=== PATIENT | male | born 1990 | race Caucasian/White ===

== ENCOUNTER 2021-11-28 14:30 | Outpatient (REF) | payer OTHER, SELFPAY ==
[2021-11-28 14:55] LABS: MANUAL DIFF FLAG NO
[2021-11-28 15:42] LABS: Basophils Absolute Auto 0.1 X10*3/uL (0.0-0.2); Basophils Percent Auto 0.6 % (0-2); Eosinophils Absolute Auto 0.1 X10*3/uL (0.0-0.4); Eosinophils Percent Auto 1.7 % (0-4); Hematocrit 48.1 % (42.0-52.0); Hemoglobin 16.2 g/dl (14.0-18.0); Imm Gran Abs Auto 0.03 X10*3/uL (0.00-0.03); Imm Gran Pct Auto 0.4 % (0.0-0.4); Lymphocytes Absolute Auto 2.1 X10*3/uL (1.2-4.9); Lymphocytes Percent Auto 25.4 % (20-40); Mean Corpuscular HGB Conc 33.7 g/dl (31.0-36.0); Mean Corpuscular Hemoglobin 29.8 pg (27.0-33.0); Mean Corpuscular Volume 88.4 fL (80.0-98.0); Mean Platelet Volume 10.7 fL (9.4-12.4); Monocytes Absolute Auto 0.5 X10*3/uL (0.1-1.2); Monocytes Percent Auto 6.4 % (2-11); Neutrophils Absolute Auto 5.5 x10*3/uL (2.0-8.3); Neutrophils Percent Auto 65.5 % (45-73); Platelet Count 279 X10*3/uL (160-400); Red Blood Count 5.44 X10*6/uL (4.60-5.80); Red Cell Distribution Width 11.9 % (11.0-16.0); White Blood Count 8.4 X10*3/uL (4.8-10.8)
[2021-11-28 15:59] LABS: C Reactive Protein 0.23 mg/dL (< or = 0.50); Rheumatoid Factor < 15.0 IU/mL (<15.0)
[2021-11-28 16:32] LABS: Erythrocyte Sedimentation Rate 2 MM/HR (0-15)
[2021-12-01 15:33] LABS: Anti Nuclear Antibody Pattern Nuclear, Homogeneous; Anti Nuclear Antibody Screen POSITIVE (NEGATIVE)
[2021-12-02 08:31] LABS: Treponema pallidum Ab FTA ABS Nonreactive (Nonreactive)
[2021-12-05 06:07] LABS: Angiotensin Converting Enzyme 23.9 U/L (9-67)
[2021-12-05 12:01] LABS: Neutrophil Cyto Ab Screen NEGATIVE (NEGATIVE)
== END 2021-11-28 14:31 | disposition home or self-care (01) ==
LOC: HO.LAB 14:30
PROVIDERS: Visit Provider Ophthalmology
DX: H20.9 Unspecified iridocyclitis (principal)
CPT/HCPCS: 36415; 82164; 85025; 85652; 86036; 86037; 86038; 86039; 86140; 86431; 86780